=== PATIENT | male | born 1955 ===

== ENCOUNTER 2021-11-04 15:00 | Outpatient (REF) | payer MEDICARE, OTHER, SELFPAY ==
[2021-11-04 21:38] LABS: HCT 45.9 % (40.0-50.0); HGB 14.3 g/dL (13.5-17.5); MCHC 31.2 % (32.0-36.0); MCV 83 fL (80-95); MPV 12.5 fL (8.0-11.0); Platelet Count 139 10^3/uL (130-400); RBC 5.51 10^6/uL (4.36-5.78); WBC 4.78 10^3/uL (4.4-10.8)
[2021-11-04 21:49] LABS: ALT 90 U/L (16-63); AST 69 U/L (15-37); Alkaline Phosphatase 102 U/L (46-116); Anion Gap 9.7 mmol/L (3-11); BUN 12 mg/dL (7-18); Bilirubin, Total 0.8 mg/dL (0.2-1.0); CO2 26.3 mmol/L (21.0-32.0); CREATININE 0.8 mg/dL (0.70-1.30); Calcium 8.9 mg/dL (8.5-10.1); Calculated LDL 159 mg/dL (<100); Chloride 104 mmol/L (98-107); Cholesterol 224 mg/dL (<200); Glucose 94 mg/dL (74-106); HDL Cholesterol 48 mg/dL (40-60); Sodium 140 mmol/L (136-145); Total Protein 7.9 g/dL (6.4-8.2); Triglyceride 86 mg/dL (<150)
[2021-11-04 23:29] LABS: Prothrombin Time 10.4 sec (9.3-11.0)
[2021-11-05 05:40] LABS: Vitamin D 25 Total 62.3 ng/mL (30-100)
== END 2021-11-04 15:01 | disposition home or self-care (01) ==
LOC: NCHCN 15:00
PROVIDERS: Visit Provider Registered Nurse
DX: R53.83 Other fatigue (principal); E78.00 Pure hypercholesterolemia, unspecified; E78.6 Lipoprotein deficiency; I10 Essential (primary) hypertension; E55.9 Vitamin D deficiency, unspecified; K83.09 Other cholangitis
CPT/HCPCS: 80053; 80061; 82306; 85027; 84443; 85610

== ENCOUNTER 2021-12-24 15:21 | Outpatient (REF) | payer MEDICARE, OTHER, SELFPAY ==
[2021-12-24 16:04] LABS: Anion Gap 5.6 mmol/L (3-11); BUN 14 mg/dL (7-18); CO2 28.4 mmol/L (21.0-32.0); CREATININE 0.9 mg/dL (0.70-1.30); Chloride 102 mmol/L (98-107); Glucose 99 mg/dL (74-106); Potassium 4.1 mmol/L (3.5-5.1); Sodium 136 mmol/L (136-145)
== END 2021-12-24 15:22 | disposition home or self-care (01) ==
LOC: NCHCN 15:21
PROVIDERS: Visit Provider Registered Nurse
DX: I10 Essential (primary) hypertension (principal)
CPT/HCPCS: 80048